=== PATIENT | female | born 1975 | race Caucasian/White ===

== ENCOUNTER 2020-06-16 23:17 | Emergency (ER) | payer BC ==
[~2020-06-16] VITALS: Ht 167.6 cm; Wt 75.0 kg
[2020-06-16 23:56] VITALS: Ht 167.6 cm; Wt 75.0 kg
[2020-06-17 02:53] VITALS: BP 115/78
== END 2020-06-17 02:07 | disposition home or self-care (01) ==
LOC: D.ER 23:17
DX: R51 Headache (principal); M54.9 Dorsalgia, unspecified